=== PATIENT | female | born 1930 | race Caucasian/White ===

== ENCOUNTER 2016-12-12 12:51 | Emergency (ER) | payer MEDICARE, BC ==
[2016-03-07 10:07] VITALS: BMI 20.7
[~2016-12-12 12:51] MED LIST: DETROL1 MG PO; LIPITOR10 MG PO; LISINOPRIL10 MG PO; METOPROLOL TART50 MG PO; OXYBUTYNIN CHLOR5 MG PO
[2016-12-13] MEDS ORDERED: TYLENOL W/CODEI1 TAB PO (09:30)
[2016-12-13] MEDS ORDERED: DURICEF500 MG PO (14:50)
== END 2016-12-12 14:46 | disposition home or self-care (01) ==
LOC: D.ER 12:51
DX: S62.102A Fracture of unspecified carpal bone, left wrist, initial encounter for closed fracture (principal); W19.XXXA Unspecified fall, initial encounter; Y93.89 Activity, other specified; Y92.019 Unspecified place in single-family (private) house as the place of occurrence of the external cause

== ENCOUNTER 2016-12-13 08:55 | Day surgery (SDC) | payer MEDICARE, BC | END 2016-12-13 16:45 | disposition home or self-care (01) | LOC: D.OPS 08:55 | DX: S52.502A Unspecified fracture of the lower end of left radius, initial encounter for closed fracture (principal); I10 Essential (primary) hypertension; Z01.812 Encounter for preprocedural laboratory examination ==

== ENCOUNTER → 2017-12-15 08:26 | Outpatient (CLI) | payer MEDICARE, BC ==
[2016-12-13 09:44] VITALS: BMI 20.7
--- NOTE | ~2017-12-15 | EC ---
PATIENT:JUAN CARLOS LUGO DATE OF SERVICE: 12/15/17 SEX: F MEDICAL RECORD: [id number] DATE OF : 34 LOCATION:D[facility] AGE OF PATIENT: 87 ADMISSION DATE: 12/15/17 REFERRING PHYSICIAN: INTERPRETING PHYSICIAN: FLACO HUGHES MD ECHOCARDIOGRAM REPORT ECHO CHARGES 4 ECHO COMPLETE Date: 12/15/17 CLINICAL DIAGNOSIS: ECHOCARDIOGRAPHIC MEASUREMENTS (adult normal given) AC root (d.<3.7cm) 3.0 cm LV Septum d (<1.2 cm> 1.4 cm Valve Excursion 0.8 cm LV Septum (systole) 1.7 cm Left Atria (s.<4.0cm> 3.6 cm LVPW d(<1.2cm) 1.2 cm RV (d.<2.3cm) 2.1 cm LVPW (sytole) 1.9 cm LV diastole(<5.6CM) 4.2 cm MV E-F(>70mm/sec) cm LV systole 2.0 cm LVOT Diameter 1.8 cm MV exc.(>10mm) cm Est.ejection fraction (50-75%) % DOPPLER: LVIT cm/sec A 142 cm/sec E 173 cm/sec LA cm/sec RVSP 52.3 mmHg LVOT 94.0 cm/sec AOP1/2T m/s Asc. Ao 356 cm/sec RVOT 58.0 cm/sec RA cm/sec PA 98.0 cm/sec AV Gradient Peak 51.0 mmHg AV Mean 26.2 mmHg AV Area 0.5 cm MV Gradient Peak 12.0 mmHg MV Mean 4.9 mmHg MV Area cm COMMENTS: Agitator Operator: 1 CHRISTOPHER SANCHEZOE Biomedical Service Engineer: 2 Dr. Alex TAPE# PACS Pericardial Effusion N DATE OF SERVICE: 12/15/2017 FINDINGS: 1. Left ventricular chamber size is within normal limits. Left ventricular systolic function is normal. Overall ejection fraction estimated at 55%. 2. Left atrium, right atrium, and right ventricle chamber size is within normal limits. 3. 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 Valve area calculates to 0.5 cm-squared. There is a gradient of 51 mm across the valve. The remaining valvular structures have normal structure ECHOCARDIOGRAM REPORT [id number] JUAN CARLOS LUGO and motion. 4. Doppler interrogation elsewise reveals moderate mitral regurgitation and moderate tricuspid regurgitation. No other valvular insufficiency or stenosis. Pulmonary systolic pressure is normal, estimated at 52 mmHg. 5. No evidence of pericardial effusion or left ventricular thrombus. TRANSINT:[id number] Voice Confirmation ID: [id number] DOCUMENT ID: [id number] FLACO HUGHES MD at 1729 CC: MANDY JOHNSON [id number] DICTATION DATE: 12/15/17 1543 AREA CAPTAIN: 12/15/17 1629 DEP CLI 12/15/17 [facility] [address] [place] [address]
[~2017-12-15 08:26] MED LIST changes: +DURICEF500 MG PO; +TYLENOL W/CODEI1 TAB PO
== END | disposition home or self-care (01) ==
LOC: D.ECHO 12-11 13:30
DX: I35.0 Nonrheumatic aortic (valve) stenosis (principal)

== ENCOUNTER 2018-02-23 07:50 | Outpatient (CLI) | payer MEDICARE, BC ==
[~2018-02-23] VITALS: Ht 160 cm; Wt 54.1 kg
--- NOTE | ~2018-02-23 | HEMODYNAMI ---
PATIENT:JUAN CARLOS LUGO MEDICAL RECORD: [id number] : 34 LOCATION:[facility] D.2117 ADMISSION DATE: 02/23/18 Generatedon:02/24/201810:15 Patient name: JUAN CARLOS LUGO Patient #: [id number] SSN: : Date of study: 02/24/2018 Page: Of Hemodynamic Procedure Report Patient Data Patient Demographics Procedure consent was obtained First Name: JUAN CARLOS Gender: Female Last Name: BRITTNEY : 1930 [facility] Initial: DEB Age: 87 year(s) Patient #: [id number] Race: Additional ID: [id number] Contact details Address: [address] [place] [address] State: [place] City: [facility] Zip code: [address] Past Medical History Allergies Allergen Reaction Date Comments Reported Other allergy 02/23/2018 Aspirin, Sulfa Other allergy 02/24/2018 ASA, Sulfa, egg Admission Admission Data Admission Date: 02/23/2018 Admission Time: 7:50 Admit Source: Other Room #: D.2117 Lab Results Lab Result Date: 02/24/2018 Lab Result Time: 0:00 Biochemistry Name Units Result Min Max BUN mg/dl 17 --(---*)-- 7 18 Creatinine mg/dl 1.1 --(--*-)-- 0.6 1.3 CBC Name Units Result Min Max Hemoglobin g/dl 11.8 *-(----)-- 13.5 17.5 Procedure Procedure Types Cath Procedure PCI Procedure Coronary Stent Coronary Stent Initial Procedure Description Procedure Date Procedure Date: 02/24/2018 Procedure Start Time: 10:02 Procedure End Time: 10:09 Procedure Staff Name Function Christiano York MD Performing Physician Ally De Leon RT Monitor Aleta Martin RT Scrub Erlin Sanz RN Nurse Procedure Data Cath Procedure Fluoroscopy Diagnostic fluoroscopy Total fluoroscopy Time: 1.6 time: 1.6 min min Diagnostic fluoroscopy Total fluoroscopy dose: 115 dose: 115 mGy mGy Contrast Material Contrast Material Type Amount (ml) Isovue 300 27 Entry Location Entry Primary Successful Side Size Upsize Upsize Entry Closure Succes sful Closure Location (Fr) 1 (Fr) 2 (Fr) Remarks Device Remarks Femoral Right 6 Fr Exoseal artery Short Estimated blood loss: 10 ml Procedure Complications No complications Procedure Medications Medication Administration Route Dosage 0.9% NaCl I.V. 100 ml/hr Oxygen etCO2 Nasal cannula 2 l/min Heparin Flush Bag added to field 2 bags (1000units/500ml NS) Lidocaine 2% added to field 20 Versed I.V. 1 mg Fentanyl I.V. 50 mcg Heparin Bolus I.V. 4000 units Hemodynamics Rest HGB: 11.8 (g/dl) Heart Rate: 86 (bpm) Snapshots Pre Cath Intra NCS Post Cath Vital Signs Time Heart Resp SPO2 etCO2 NIBP (mmHg) Rhythm Pain Sedation Rate (ipm) (%) (mmHg) Status Level (bpm) 9:23:02 81 13 99 33.2 181/80(131) NSR 0 (11) 10(A) , No pain 9:27:28 84 13 96 0 169/77(128) NSR 0 (11) 10(A) , No pain 9:31:50 87 12 94 0 158/77(133) NSR 0 (11) 10(A) , No pain 9:36:10 82 11 96 0 149/70(117) NSR 0 (11) 10(A) , No pain 9:40:24 83 12 94 0 150/78(110) NSR 0 (11) 10(A) , No pain 9:44:41 83 11 92 0 147/76(120) NSR 0 (11) 10(A) , No pain 9:48:54 86 11 93 0 145/79(126) NSR 0 (11) 10(A) , No pain 9:53:06 81 11 94 0 156/74(126) NSR 0 (11) 10(A) , No pain 9:57:26 79 12 98 37.7 145/70(119) NSR 0 (11) 10(A) , No pain 10:01:40 78 12 97 42.2 135/78(111) NSR 0 (11) 9(A) , No pain 10:05:48 83 11 96 4.5 153/82(129) NSR 0 (11) 9(A) , No pain 10:10:06 80 12 97 32.4 147/74(109) NSR 0 (11) 10(A) , No pain Medications Time Medication Route Dose Verified Delivered Reason Notes Effectiveness by by 9:25:11 0.9% NaCl I.V. 100 Erlin Erlin Per physician ml/hr Umu Sanz RN RN 9:25:24 Oxygen etCO2 2 Erlin Erlin Per physician Nasal l/min Umu Sanz cannula RN RN 9:25:36 Heparin Flush added 2 Erlin Erlin used for Bag to bags Umu Sanz procedure (1000units/500ml field RN RN NS) 9:25:46 Lidocaine 2% added 20ml Erlin Erlin for local to vial Umu Sanz anesthetic RN RN 9:56:01 Versed I.V. 1 mg Erlin Erlin for sedation Umu Sanz RN RN 9:56:09 Fentanyl I.V. 50 Erlin Erlin for sedation mcg Umu Sanz RN RN 10:03:47 Heparin Bolus I.V. 4000 Erlin Erlin for units Umu Sanz anticoagulation RN utility worker film processing Log Time Note 9:06:10 Informed consent obtained and on chart 9:06:24 Diagnostic Cath Status : Elective 9:06:44 Erlin Sanz RN sent for patient. Start room use. 9:06:45 Time tracking: Regular hours (M-F 7:00 - 5:00) 9:06:49 Plan of Care:Hemodynamics will remain stable., Cardiac rhythm will remain stable., Comfort level will be maintained., Respiratory function will remain adequate., Patient/ family verbilizes understanding of procedure., Procedure tolerated without complication., Recovers from procedure without complications.. 9:09:10 Lab Result : Hemoglobin 11.8 g/dl 9:09:10 Lab Result : Creatinine 1.1 mg/dl 9:09:10 Lab Result : BUN 17 mg/dl 9:16:18 Patient received from PCU to CCL 2 Alert and oriented. Tansferred to table in Supine position. 9:16:19 Warm blankets applied, and leah hugger turned on for patient comfort. 9:16:20 Correct patient and procedure confirmed by team. 9:16:21 ECG and BP/O2 sat monitors applied to patient. 9:16:23 Full Disclosure recording started 9:19:19 H&P Date Dictated: 02/23/2018 Within 30 days and on chart., H&P Addendum completed by physician on day of procedure. (MUST COMPLETE FOR ALL OUTPATIENTS). 9:19:21 Pre-procedure instructions explained to patient. 9:19:29 Family in patients room. 9:19:30 Patient NPO since Midnight. 9:20:09 Patient allergic to Other allergyASA, Sulfa, egg 9:20:12 Is the patient allergic to Iodine/contrast media? No. 9:20:15 Was the patient premedicated? Yes 9:20:16 Is patient on blood thinner?Yes 9:20:20 ACC The patient was administered the following blood thiners within the last 24 hours: ACCPlavix 9:20:54 Patient diabetic? No. 9:21:00 Snore? No 9:21:02 Sleep apnea? No 9:21:04 Deviated septum? No 9:21:08 Opens mouth fully? Yes 9:21:10 Sticks out tongue? Yes 9:21:15 Dentures? Yes tight 9:21:21 Patient pain scale 0/10 ?. 9:21:50 Vital chart was started 9:21:52 Baseline sample Acquired. 9:21:59 Rhythm: sinus tachycardia 9:22:24 IV patent on arrival in left forearm with 0.9% NaCl at KVO. 9:22:28 Lab results completed and on chart. 9:22:33 Right groin area was prepped with chlora-prep and draped in sterile fashion 9:22:34 Alarms reviewed by R. N. 9:22:34 Sharps counted by scrub and verified by R.N. 9:22:36 Physician paged 9:24:34 Use device set Femoral Dx 9:24:36 ACIST Syringe (23716) opened to sterile field. 9:24:37 Bag Decanter (2002) opened to sterile field. 9:24:39 Medline Cath Pack ([id number]) opened to sterile field. 9:24:40 DIAGNOSTIC WIRE .035 260cm J wire (119784) opened to sterile field. 9:24:42 ACIST Hand Control (51564) opened to sterile field. 9:24:43 ACIST Manifold (89589) opened to sterile field. 9:25:11 0.9% NaCl 100 ml/hr I.V. was administered by Erlin Sanz RN; Per physician; 9:25:24 Oxygen 2 l/min etCO2 Nasal cannula was administered by Erlin Sanz RN; Per physician; 9:25:36 Heparin Flush Bag (1000units/500ml NS) 2 bags added to field was administered by Erlin Sanz RN; used for procedure; 9:25:38 Tegaderm 4 x 4 (1626W) opened to sterile field. 9:25:46 Lidocaine 2% 20ml vial added to field was administered by Erlin Sanz RN; for local anesthetic; 9:25:54 SHEATH 6FR [place] (ZNL670) opened to sterile field. 9:26:48 INFLATOR Merit BasixCompak (CD0142) opened to sterile field. 9:27:11 CHOICE PT Extra Support 182cm wire ([id number]) opened to sterile field. 9:48:21 Zero performed for pressure channel P1 9:55:37 Physician arrived 9:55:38 --------ALL STOP TIME OUT------ 9:55:39 Final Timeout: patient, procedure, and site verified with staff and physician. All members of the team are in agreement. 9:55:43 Right groin site verified by team. 9:55:46 Physical assessment completed. ASA score P 2 - A patient with mild systemic disease as per Christiano York MD. 9:55:50 Sedation plan: IV Moderate Sedation Medication:Versed, Fentanyl 9:56:01 Versed 1 mg I.V. was administered by Erlin Sanz RN; for sedation; 9:56:09 Fentanyl 50 mcg I.V. was administered by Erlin Sanz RN; for sedation; 10:02:47 PCI Cath status Elective 10:02:50 Procedure started. 10:02:55 Local anesthetic to right femoral artery with Lidocaine 2% by Christiano York MD.INITIAL ACCESS ONLY 10:03:03 A 6 Fr Short sheath was inserted into the Right Femoral artery 10:03:30 GUIDE 6FR XBLAD 3.5 catheter ([id number]) opened to sterile field. 10:03:43 6 Fr XBLAD3.5 guide catheter was inserted over the wire 10:03:47 Heparin Bolus 4000 units I.V. was administered by Erlin Sanz RN; for anticoagulation; 10:04:14 Choice pt ex wire advanced. 10::43 Wire advanced across lesion. 10:06:02 Place stent Inflation Number: 1 A INTEGRITY RX 3.5 x 12 stent ([id number]) was prepped and advanced across the Prox LAD. The stent was deployed at 13 SANDRA for 0:10 (min:sec). 10:06:43 Wire removed. 10:06:45 Guide catheter removed. 10:06:55 Sheath removed intact; hemostasis achieved with Exoseal to the Right Femoral artery. 10:06:58 Procedure ended.(Physican Out) 10:07:49 Fluoroscopy time 01.60 minutes. 10:07:53 Fluoroscopy dose: 115 mGy 10:07:53 Flurop Dose total: 115 10:08:12 EXOSEAL 6Fr (EX600) opened to sterile field. 10:08:19 Contrast amount:Isovue 300 27ml. 10:08:21 Sharps counted by scrub and verified by R.N. 10:08:23 Insertion/operative site no bleeding no hematoma. 10:08:25 Post Procedure Pulses reassessed and unchanged 10:08:31 Post-procedure physical assessment completed. ASA score P 2 - A patient with mild systemic disease as per Christiano York MD. 10:08:34 Post procedure rhythm: sinus rhythm 10:08:39 Estimated blood loss: 10 ml 10:08:43 Post procedure instruction explained to patient.Patient verbalizes understanding. 10:08:57 Procedure type changed to Cath procedure, PCI procedure, Coronary Stent, Coronary Stent Initial 10:08:59 Procedure and supply charges have been captured, reviewed, submitted and are correct. 10:09:24 Procedure Complication : No complications 10:09:26 Vital chart was stopped 10:09:27 See physician's report for complete and final results. 10:09:29 Report given to Pre/Post Procedure Room. 10:09:35 Patient transfered to Pre/Post Procedure Room with Bed. 10:09:37 Procedure ended. 10:09:37 Full Disclosure recording stopped 10:09:40 End room use (Document Last) Intervention Summary Intervention Notes Time ActionType Lesion and Equipment Action# Pressure Duration Attributes Used 10:06:[address] stent Prox LAD INTEGRITY RX 1 13 00:10 3.5 x 12 stent ([id number]) Device Usage Item Name Manufacture Quantity Catalog Number Hospital Part Current Mini mal Lot# / Charge Number Stock Stock Serial# Code ACIST Acist 1 21332 244694 221208 403173 20 Syringe Medical (76962) Systems Inc Bag Decanter Microtek 1 2001S 222849 49021 758815 5 (2001S) Medical Inc. Medline Cath Medline 1 [id number] 478508 94150 610433 5 Pack ([id number]) DIAGNOSTIC St [place] 1 350849 595120 690662 063054 30 WIRE .035 260cm J wire (213351) ACIST Hand Acist 1 65989 894708 771118 601236 5 Control Medical (59863) Systems Inc ACIST Acist 1 59753 421941 276070 794652 5 Manifold Medical (11490) Systems Inc Tegaderm 4 x 3M 1 1626W 970617 438254 375916 5 4 (1626W) SHEATH 6FR Terumo 1 YKI979 306765 391523 158861 40 [place] (LKQ606) INFLATOR Merit 1 FH2242 605184 742330 391832 15 Merit Medical BasixCompak (PR8454) CHOICE PT [place] 1 [id number] 289913 115615 255189 5 Extra Scientific Support 182cm wire ([id number]) GUIDE 6FR Cardinal 1 [id number] 144853 944365 232973 10 XBLAD 3.5 Health catheter (88610192) INTEGRITY RX Medtronic 1 [id number] 383378 251445 008957 5 [id number] 3.5 x 12 stent ([id number]) EXOSEAL 6Fr Cardinal 1 EX600 500939 508262 115859 10 (EX600) Health Signature Audit [place] Stage Time Signature Unsigned Intra-Procedure 02/24/2018 Ally De Leon 10:15:25 AM RT(R) Signatures Monitor : Ally De Leon Signature : RT Date : Time : [facility] [address] [facility] [place] [address]
--- NOTE | ~2018-02-23 | DS ---
PATIENT:JUAN CARLOS CARTER :34 MEDICAL RECORD: [id number] DISCHARGE SUMMARY ADMISSION DATE: 02/23/18 DISCHARGE DATE: 02/24/18 DATE OF SERVICE: 02/24/2018 DIAGNOSES: 1. Angina. 2. Coronary artery disease. 3. Percutaneous transluminal coronary angioplasty stent left anterior descending and right coronary artery this admission. HOSPITAL COURSE: Ms. Carter presents with anginal symptomatology, found to have 2-vessel disease of the LAD and RCA, underwent successful PTCA stent of both territories, was discharged home with the addition of Plavix to her medical regimen. Will follow up with [facility] in 1 month. TRANSINT:[id number] Voice Confirmation ID: [id number] DOCUMENT ID: [id number] FLACO HUGHES MD at 1718 CC: [id number] DICTATION DATE: 02/24/18 1012 AMBULATORY CARE NURSE: 02/25/18 0012 DEP CLI 02/24/[address] [address]
--- NOTE | ~2018-02-23 | OP ---
PATIENT NAME: JUAN CARLOS LUGO MEDICAL RECORD: [id number] :34 LOCATION:D.CAT ADMISSION DATE: SURGEON: FLACO HUGHES MD DATE OF OPERATION: 02/24/2018 PROCEDURES: 1. PTCA and stent, LAD. 2. Selective coronary angiography. INDICATION: Angina and coronary artery disease. PROCEDURE PERFORMED: After informed consent was obtained with detailed description of risks and benefits as well as alternative therapies, the patient elected to proceed with angiogram and angioplasty. The right femoral area was prepped and draped in normal sterile fashion. Right femoral artery was cannulated via modified Seldinger technique with placement of 6-Upper Sorbian sheath. All catheters were exchanged through this sheath. FINDINGS: The left anterior descending has 80% stenosis proximally. This was addressed with a 3.5 x 12-mm Integrity stent. Result was 0% residual stenosis. OVERALL IMPRESSION: Successful PTCA and stent of the LAD, going from 85% initial stenosis to 0% residual. TRANSINT:[id number] Voice Confirmation ID: [id number] DOCUMENT ID: [id number] FLACO HUGHES MD at 1704 CC: [id number] DICTATION DATE: 02/24/18 1011 SALES REPRESENTATIVE CONSULTANT: 02/24/18 1055 DEP CLI 02/24/18 [place] [address] [place] [address]
--- NOTE | ~2018-02-23 | OP ---
PATIENT NAME: JUAN CARLOS LUGO MEDICAL RECORD: [id number] :34 LOCATION:D.CAT ADMISSION DATE: SURGEON: FLACO HUGHES MD DATE OF OPERATION: 02/23/2018 PROCEDURES: 1. PTCA stent RCA. 2. Intravascular ultrasound. 3. Left heart catheterization. 4. Selective coronary angiography. 5. Left ventriculogram. INDICATION: Angina and coronary artery disease. PROCEDURE IN DETAIL: After informed consent was obtained and after a detailed description of risks, benefits as well as alternative therapies, the patient elected to proceed with angiogram and angioplasty. The right radial area was prepped and draped in normal sterile fashion. Right radial artery was cannulated via modified Seldinger technique with placement of 6-Taiwanese sheath. All catheters exchanged through this sheath. FINDINGS: Left ventriculogram was performed in standard 30-degree SHAW view, reveals good cardiac wall motion throughout all segments. Overall ejection fraction estimated 60%. SELECTIVE CORONARY ANGIOGRAPHY: 1. Left main is with no significant angiographic disease. 2. Left anterior descending has 80% stenosis proximally. 3. Left circumflex has moderate irregularities, but no flow-limiting stenosis. 4. Right coronary artery has 78% stenosis confirmed by intravascular ultrasound in the mid vessel. PTCA STENT OF THE RCA: The stent used was a 4.0 x 15 mm Integrity. Result was 0% residual stenosis. OVERALL IMPRESSION: Successful percutaneous transluminal coronary angioplasty stent of the right coronary artery going from approximately 80% initial stenosis to 0% residual. PLAN: PTCA stent of the LAD in the near future. TRANSINT:[id number] Voice Confirmation ID: [id number] DOCUMENT ID: [id number] FLACO HUGHES MD at 1704 CC: [id number] DICTATION DATE: 02/23/18 1006 WATER SERVICE DISPATCHER: 02/23/18 1040 DEP CLI 02/24/18 [place] [address]
--- NOTE | ~2018-02-23 | HEMODYNAMI ---
PATIENT:JUAN CARLOS LUGO MEDICAL RECORD: [id number] : 34 LOCATION:D.CAT ADMISSION DATE: 02/23/18 Generatedon:02/23/201810:08 Patient name: JUAN CARLOS LUGO Patient #: [id number] SSN: : Date of study: 02/23/2018 Page: Of Hemodynamic Procedure Report Patient Data Patient Demographics Procedure consent was obtained First Name: JUAN CARLOS Gender: Female Last Name: BRITTNEY : 1930 Middle Initial: DEB Age: 87 year(s) Patient #: [id number] Race: Unknown Additional ID: [id number] Contact details Address: [address] [place] [address] State: [place] City: [facility] Zip code: [address] Past Medical History Allergies Allergen Reaction Date Comments Reported Other allergy 02/23/2018 Aspirin, Sulfa Admission Admission Data Admission Date: 02/23/2018 Admission Time: 7:50 Admit Source: Other Procedure Procedure Types Cath Procedure Diagnostic Procedure LHC LHC w/Coronaries FFR/IVUS Intra-Coronary IVUS Initial Sedation Charges Moderate Sedation up to 15 minutes PCI Procedure Coronary Stent Coronary Stent Initial Procedure Description Procedure Date Procedure Date: 02/23/2018 Procedure Start Time: 9:46 Procedure End Time: 10:03 Procedure Staff Name Function Christiano York MD Performing Physician Aleta Martin RT Scrub Erlin Sanz RN Nurse Deandre Barrera RN Fashion Director Ally De Leon RT Fashion Director Procedure Data Cath Procedure Fluoroscopy Diagnostic fluoroscopy Total fluoroscopy Time: 3.1 time: 3.1 min min Diagnostic fluoroscopy Total fluoroscopy dose: 297 dose: 297 mGy mGy Contrast Material Contrast Material Type Amount (ml) Isovue 300 73 Entry Location Entry Primary Successful Side Size Upsize Upsize Entry Closure Rachel ccessful Closure Location (Fr) 1 (Fr) 2 (Fr) Remarks Device Remarks Radial Right 6 Fr Mechanical artery Short Compression Estimated blood loss: 10 ml Diagnostic catheters Device Type Used For End Catheter Placement DIAGNOSTIC [place] 110cm 5 Procedure Fr catheter ([id number]) Procedure Complications No complications Procedure Medications Medication Administration Route Dosage 0.9% NaCl I.V. bolus 100 ml/hr Oxygen etCO2 Nasal cannula 2 l/min Heparin Flush Bag added to field 2 bags (1000units/500ml NS) Lidocaine 2% added to field 20 Radial Cocktail added to field 1 syringe (Verapomil 2mg/Nitro 400mcg/Heparin 1500units) Versed I.V. 1 mg Fentanyl I.V. 50 mcg Radial Cocktail I.A. 1 syringe (Verapomil 2mg/Nitro 400mcg/Heparin 1500units) Heparin Bolus I.V. 4000 units Integrilin (Bolus I.V. 5 ml 2mg/ml) Integrilin (Bolus wasted 5 ml 2mg/ml) Plavix P.O. 600 mg Hemodynamics Rest Heart Rate: 68 (bpm) Snapshots Pre Cath Intra NCS Post Cath Vital Signs Time Heart Resp SPO2 etCO2 NIBP (mmHg) Rhythm Pain Sedation Rate (ipm) (%) (mmHg) Status Level (bpm) 9:21:44 75 16 99 0 182/85(133) NSR 0 (11) 10(A) , No pain 9:26:10 67 10 100 9.8 159/77(125) NSR 0 (11) 10(A) , No pain 9:30:28 74 15 100 15.1 156/75(133) NSR 0 (11) 10(A) , No pain 9:34:46 68 12 100 27.2 159/79(102) NSR 0 (11) 10(A) , No pain 9:39:06 70 12 100 25.6 165/75(107) NSR 0 (11) 10(A) , No pain 9:43:29 64 12 100 28.7 154/73(128) NSR 0 (11) 10(A) , No pain 9:47:43 75 16 100 31.7 174/83(132) NSR 0 (11) 9(A) , No pain 9:52:05 86 14 98 12 127/77(105) NSR 0 (11) 9(A) , No pain 9:56:15 83 15 99 37 129/70(98) NSR 0 (11) 10(A) , No pain 10:00:23 78 15 100 31.7 140/74(113) NSR 0 (11) 10(A) , No pain Medications Time Medication Route Dose Verified Delivered Reason Not es Effectiveness by by 9:23:14 0.9% NaCl I.V. 100 Erlin Erlin Per physician bolus ml/hr Umu Sanz RN RN 9:23:23 Oxygen etCO2 2 l/min Erlin Erlin Per physician Nasal Umu Sanz cannula RN RN 9:23:36 Heparin Flush added 2 bags Erlin Erlin used for Bag to Lornorma Sanz procedure (1000units/500ml field RN RN NS) 9:23:48 Lidocaine 2% added 20ml Erlin Erlin for local to vial Lorigan Umu anesthetic field RN RN 9:24:00 Radial Cocktail added 1 Erlin Erlin used for (Verapomil to syringe Lorigan Umu procedure 2mg/Nitro RN RN 400mcg/Heparin 1500units) 9:48:09 Versed I.V. 1 mg Erlin Erlin for sedation Umu aSnz RN RN 9:48:17 Fentanyl I.V. 50 mcg Erlin Erlin for sedation Umu Sanz RN RN 9:48:26 Radial Cocktail I.A. 1 Erlin Christiano for (Verapomil syringe Lornorma Tauth MD vasodilation 2mg/Nitro RN 400mcg/Heparin 1500units) 9:54:04 Heparin Bolus I.V. 4000 Erlin Erlin for units Umu Sanz anticoagulation RN RN 9:54:19 Integrilin I.V. 5 ml Erlin Erlin for (Bolus 2mg/ml) Umu Sanz antiplatelet RN RN therapy 9:54:38 Integrilin wasted 5 ml Erlin Erlin to sharp's (Bolus 2mg/ml) Umu Sanz RN RN 10:00:57 Plavix P.O. 600 mg Erlin Erlin for Umu Sanz antiplatelet RN RN therapy Procedure Log Time Note 9:00:37 Deandre Barrera RN sent for patient. Start room use. 9:14:54 Informed consent obtained and on chart 9:14:59 Admit Source: Other 9:16:58 Diagnostic Cath status Elective 9:17:43 Time tracking: Regular hours (M-F 7:00 - 5:00) 9:17:46 Plan of Care:Hemodynamics will remain stable., Cardiac rhythm will remain stable., Comfort level will be maintained., Respiratory function will remain adequate., Patient/ family verbilizes understanding of procedure., Procedure tolerated without complication., Recovers from procedure without complications.. 9:18:03 Patient received from Pre/Post Procedure Room to CCL 2 Alert and oriented. Tansferred to table in Supine position. 9:18:04 Warm blankets applied, and leah hugger turned on for patient comfort. 9:18:04 Correct patient and procedure confirmed by team. 9:18:05 ECG and BP/O2 sat monitors applied to patient. 9:18:07 Pre-procedure instructions explained to patient. 9:18:07 Pre-op teaching completed and patient verbalized understanding. 9:18:24 H&P Date Dictated: 02/12/2018 Within 30 days and on chart., H&P Addendum completed by physician on day of procedure. (MUST COMPLETE FOR ALL OUTPATIENTS). 9:18:26 Family in waiting room. 9:18:27 Patient NPO since Midnight. 9:18:41 Patient allergic to Other allergyAspirin, Sulfa 9:18:43 Is the patient allergic to Iodine/contrast media? No. 9:19:40 Is patient on blood thinner?No 9:19:40 Patient diabetic? No. 9:19:43 Previous problem with sedation/anesthesia? No ? 9:19:44 Snore? No 9:19:44 Sleep apnea? No 9:19:45 Deviated septum? No 9:19:46 Opens mouth fully? Yes 9:19:46 Sticks out tongue? Yes 9:19:48 Airway obstruction? No ? 9:19:51 Dentures? Yes OUT 9:20:11 Modified Kane's test Ulnar < 7 seconds 9:20:13 Patient pain scale 0/10 ?. 9:20:17 IV patent on arrival in left forearm with 0.9% NaCl at KVO. 9:20:19 Lab results completed and on chart. 9:20:21 Right Radial & Right Groin area was prepped with chlora-prep and draped in sterile fashion 9:20:23 Alarms reviewed by R. N. 9:20:23 Sharps counted by scrub and verified by R.N. 9:20:34 Vital chart was started 9:20:51 Rhythm: sinus rhythm 9:23:14 0.9% NaCl 100 ml/hr I.V. bolus was administered by Erlin Sanz RN; Per physician; 9:23:23 Oxygen 2 l/min etCO2 Nasal cannula was administered by Erlin Sanz RN; Per physician; 9:23:36 Heparin Flush Bag (1000units/500ml NS) 2 bags added to field was administered by Erlin Sanz RN; used for procedure; 9:23:48 Lidocaine 2% 20ml vial added to field was administered by Erlin Sanz RN; for local anesthetic; 9:24:00 Radial Cocktail (Verapomil 2mg/Nitro 400mcg/Heparin 1500units) 1 syringe added to field was administered by Erlin Sanz RN; used for procedure; 9:35:13 Baseline sample Acquired. 9:35:16 Full Disclosure recording started 9:43:03 Zero performed for pressure channel P1 9:44:28 Physician arrived 9:44:28 --------ALL STOP TIME OUT------ 9:44:29 Final Timeout: patient, procedure, and site verified with staff and physician. All members of the team are in agreement. 9:44:53 Right Radial & Right Groin site verified by team. 9:44:57 Physical assessment completed. ASA score P 2 - A patient with mild systemic disease as per Christiano York MD. 9:45:01 Sedation plan: IV Moderate Sedation Medication:Versed, Fentanyl 9:45:12 Use device set Radial Dx or PCI 9:45:13 ACIST Syringe (60308) opened to sterile field. 9:45:14 Medline Cath Pack ([id number]) opened to sterile field. 9:45:14 Bag Decanter () opened to sterile field. 9:45:15 DIAGNOSTIC WIRE .035 260cm J wire (073697) opened to sterile field. 9:45:16 ACIST Hand Control (86378) opened to sterile field. 9:45:17 ACIST Manifold (07118) opened to sterile field. 9:45:17 Tegaderm 4 x 4 (1626W) opened to sterile field. 9:45:18 MBrace Wrist Support ([id number]) opened to sterile field. 9:45:19 NEEDLE Cook 21G 4cm Radial (G15876) opened to sterile field. 9:45:22 TR BAND Standard ([id number]) opened to sterile field. 9:45:25 SHEATH 6FR Slender (80-2344) opened to sterile field. 9:46:39 Procedure started. 9:46:59 Local anesthetic to right radial artery with Lidocaine 2% by Christiano York MD.INITIAL ACCESS ONLY 9:47:15 A 6 Fr Short sheath was inserted into the Right Radial artery 9:47:29 A DIAGNOSTIC [place] 110cm 5 Fr catheter (423802) was advanced over the wire and used for Procedure. 9:48:09 Versed 1 mg I.V. was administered by Erlin Sanz RN; for sedation; 9:48:17 Fentanyl 50 mcg I.V. was administered by Erlin Sanz RN; for sedation; 9:48:26 Radial Cocktail (Verapomil 2mg/Nitro 400mcg/Heparin 1500units) 1 syringe I.A. was administered by Christiano York MD; for vasodilation; 9:48:35 LV angiography performed. 9:49:06 EF : 55 % 9:49:10 LCA angiography performed. 9:49:40 RCA angiography performed. 9:49:48 Catheter removed. 9:52:35 INFLATOR Merit BasixCompak (HR6944) opened to sterile field. 9:52:36 CHOICE PT Extra Support 182cm wire ([id number]) opened to sterile field. 9:52:36 GUIDE 6FR AR 2.0 SH catheter ([id number]) opened to sterile field. 9:52:37 Clarks Algaaciq [place] IVUS Catheter (15869S) opened to sterile field. 9:53:56 IVUS catheter advanced over wire. 9:54:04 Heparin Bolus 4000 units I.V. was administered by Erlin Sanz RN; for anticoagulation; 9:54:19 Integrilin (Bolus 2mg/ml) 5 ml I.V. was administered by Erlin Sanz RN; for antiplatelet therapy; 9:54:38 Integrilin (Bolus 2mg/ml) 5 ml wasted was administered by Erlin Sanz RN; to sharp's; 9:56:31 IVUS catheter removed over wire. 9:56:37 Proceeding to intervention. 9:56:52 6 Fr AR2 guide catheter was inserted over the wire 9:57:44 Place stent Inflation Number: 1 A INTEGRITY RX 4.0 x 15 stent ([id number]) was prepped and advanced across the Mid RCA. The stent was deployed at 17 SANDRA for 0:13 (min:sec). 10:00:35 Stent catheter was removed intact over wire. 10:00:36 Wire removed. 10:00:37 Guide catheter removed. 10:00:53 Sheath removed intact; hemostasis achieved with Mechanical Compression to the Right Radial artery. 10:00:56 Procedure ended.(Physican Out) 10:00:57 Plavix 600 mg P.O. was administered by Erlin Sanz RN; for antiplatelet therapy; 10:01:12 Fluoroscopy time 03.10 minutes. 10::17 Fluoroscopy dose: 297 mGy 10::17 Flurop Dose total: 297 10::21 Contrast amount:Isovue 300 73ml. 10:01:23 Sharps counted by scrub and verified by R.N. 10:01:25 TR band inflated with 13cc of air. 10:01:27 Insertion/operative site no bleeding no hematoma. 10:01:34 Post left radial artery:stable 10:01:39 Post-procedure physical assessment completed. ASA score P 2 - A patient with mild systemic disease as per Christiano York MD. 10:01:45 Post procedure rhythm: unchanged. 10:01:49 Estimated blood loss: 10 ml 10:01:52 Post procedure instruction explained to patient.Patient verbalizes understanding. 10:02:21 Procedure type changed to Cath procedure, Diagnostic procedure, LHC, LHC w/Coronaries, FFR/IVUS, Intra-Coronary IVUS Initial, Sedation Charges, Moderate Sedation up to 15 minutes, PCI procedure, Coronary Stent, Coronary Stent Initial 10:02:22 Procedure and supply charges have been captured, reviewed, submitted and are correct. 10:02:53 Procedure Complication : No complications 10:02:56 Vital chart was stopped 10:02:56 See physician's report for complete and final results. 10:02:58 Report given to Pre/Post Procedure Room. 10:03:02 Patient transfered to Pre/Post Procedure Room with Stretcher. 10:03:04 Procedure ended. 10:03:04 Full Disclosure recording stopped 10:03:08 End room use (Document Last) 10:07:55 ACC-PCI Only Patient was given prescriptions, or instructed by Christiano York MD to start/continue the following medications upon discharge: Plavix Intervention Summary Intervention Notes Time ActionType Lesion and Equipment Action# Pressure Duration Attributes Used 9:57:44 Place stent Mid RCA INTEGRITY RX 1 17 00:13 4.0 x 15 stent ([id number]) Device Usage Item Name Manufacture Quantity Catalog Number Hospital Part Current Mini mal Lot# / Charge Number Stock Stock Serial# Code ACIST Acist 1 05427 353788 130809 880946 20 Syringe Medical (31126) Systems Inc Medline Cath Medline 1 [id number] 416490 70418 406439 5 Pack ([id number]) Bag Decanter Microtek 1 2001S 535296 98598 044356 5 (2001S) Medical Inc. DIAGNOSTIC [place] 1 948216 993485 338084 577599 30 WIRE .035 260cm J wire (486238) ACIST Hand Acist 1 19122 840183 353673 640633 5 Control Medical (22885) Systems Inc ACIST Acist 1 63967 671113 410827 647510 5 Manifold Medical (45504) Systems Inc Tegaderm 4 x 3M 1 1626W 653533 066386 072495 5 4 (1626W) MBrace Wrist Advanced 1 140-0250-00 198897 16908 585286 5 Support Vascular ([id number]) Dynamics NEEDLE Cook Cook Medical 1 E55375 489245 794762 109572 5 21G 4cm Radial (R13334) TR BAND Terumo 1 HHT73-[id number] 873940 935564 633868 40 Standard ([id number]) SHEATH 6FR Terumo 1 [id number] 443286 373473 440223 40 Slender (80-1060) DIAGNOSTIC Terumo 1 40-5013 412994 748256 088865 5 [place] 110cm 5 Fr catheter (039359) INFLATOR Merit 1 BI6419 596752 021457 963527 15 Wilocity Medical BasixCompak (MT0540) CHOICE PT [place] 1 [id number] 413194 789074 702288 5 Extra Scientific Support 182cm wire (0363734W6) GUIDE 6FR AR Medtronic 1 [id number] 533319 20485 484130 1 2.0 SH catheter ([id number]) Clarks [place] 1 68384K 786802 478540 934948 8 Algaaciq [place] IVUS Catheter (53245D) INTEGRITY RX Medtronic 1 [id number] 712040 231860 839794 5 [id number] 4.0 x 15 stent ([id number]) Signature Audit Pender Stage Time Signature Unsigned Intra-Procedure 02/23/2018 Ally De Leon 10:08:11 AM RT(R) [facility] [address] [place] [id number]
[2018-02-23] MEDS ORDERED: NORVASC2.5 MG PO (08:03)
[2018-02-23 08:16] VITALS: BP 186/70; BMI 21.1
[2018-02-23 08:44] LABS: CALCIUM 9.1 mg/dL (8.5-10.1); CARBON DIOXIDE 29.1 mmol/L (21.0-32.0); CREATININE - SERUM 1.1 mg/dL (0.6-1.3); POTASSIUM - SERUM 4.1 mmol/L (3.5-5.1)
[2018-02-23 08:49] LABS: BASOPHILS 0.9 % (0-2); EOSINOPHILS 3.9 % (0-7); HEMOGLOBIN 11.8 g/dL (12-16); IMMATURE GRANULOCYTES 0.3 % (0-5); LYMPHOCYTES 33.3 % (15-50); MCH 31.9 pg (26.0-34.0); MCHC 32.8 g/dL (31.0-37.0); MCV 97.3 fL (80.0-100.0); MEAN PLATELET VOLUME 9.8 fL (7.4-10.4); MONOCYTES 14.8 % (2-11); NEUTROPHILS 46.8 % (40-80); PLATELET COUNT 161 10x3/uL (130-400); RDW 13.3 % (11.5-14.5); WBC 3.3 10x3/uL (4.8-10.8)
[2018-02-23 11:07] VITALS: Ht 160 cm; Wt 54.1 kg
[2018-02-23 15:00] VITALS: BP 159/81
[2018-02-23 19:00] VITALS: BP 151/68
[2018-02-24 01:37] VITALS: BP 104/60
[2018-02-24 06:11] VITALS: BP 120/75
[2018-02-24 08:11] VITALS: BP 158/63
[2018-02-24] MEDS ORDERED: PLAVIX75 MG PO (10:35)
[2018-02-24] MEDS ORDERED: BAYER CHEWABLE81 MG PO (10:35)
== END 2018-02-24 14:35 | disposition home or self-care (01) ==
LOC: D.M2 07:50 → D.CATH 07:50 → D.M2 10:03 → D.CLR 02-24 12:05 → D.CATH 02-24 14:35
PROVIDERS: Internal Medicine Interventional Cardiology
DX: I25.119 Atherosclerotic heart disease of native coronary artery with unspecified angina pectoris (principal); Z01.812 Encounter for preprocedural laboratory examination

== ENCOUNTER 2018-04-10 19:30 | Inpatient (IN) | payer MEDICARE, BC ==
[~2018-04-10] VITALS: Ht 160 cm; Wt 52.6 kg
--- NOTE | 2018-04-10 19:15 | NUR ---
PT ARRIVED VIA, WC WITH GAME MANAGER, PT DURGA BARILLAS, ORIENTED TO FACILITY, ROOM, BATHROOM, EXPLAINED THE TV REMOTE/CALL LIGHT SYSTEM,FLUIDS AND CALL LIGHT WITHIN REACH,
[~2018-04-10 19:30] MED LIST changes: +BAYER CHEWABLE81 MG PO; +NORVASC2.5 MG PO; +PLAVIX75 MG PO
[2018-04-10 23:44] VITALS: BP 150/61; BMI 20.5
--- NOTE | 2018-04-11 03:23 | NUR ---
PT ASLEEP NO NEEDS NOTED, FLUIDS AND CALL LIGHT WITHIN REACH
[2018-04-11 06:47] LABS: BASOPHILS 0.3 % (0-2); EOSINOPHILS 1.9 % (0-7); HEMATOCRIT 30.1 % (36.0-48.0); HEMOGLOBIN 10.1 g/dL (12-16); IMMATURE GRANULOCYTES 0.3 % (0-5); MCH 32.1 pg (26.0-34.0); MCHC 33.6 g/dL (31.0-37.0); MCV 95.6 fL (80.0-100.0); MEAN PLATELET VOLUME 10.3 fL (7.4-10.4); NEUTROPHILS 62.5 % (40-80); PLATELET COUNT 132 10x3/uL (130-400); RBC 3.15 10x6/uL (4.00-5.40); RDW 13.1 % (11.5-14.5); WBC 7.5 10x3/uL (4.8-10.8)
[2018-04-11 07:42] LABS: ANION GAP 14.7 mmol/L (8-16); CALCIUM 8.8 mg/dL (8.5-10.1); CARBON DIOXIDE 22.4 mmol/L (21.0-32.0); POTASSIUM - SERUM 4.1 mmol/L (3.5-5.1)
[2018-04-11 08:00] VITALS: BP 120/62
--- NOTE | 2018-04-11 08:00 | NUR ---
SHIFT ASSMT COMPLETED.BREAKFAST GIVEN.CL IN REACH.
[2018-04-11 10:11] VITALS: Ht 160 cm; Wt 52.6 kg
--- NOTE | 2018-04-11 12:00 | NUR ---
SITTING UP EATING LUNCH.DELORIS THERAPY.
--- NOTE | 2018-04-11 16:00 | NUR ---
RESTING ON SIDE.DENIES NEEDS.
[2018-04-11 19:00] VITALS: BP 162/67
--- NOTE | 2018-04-11 19:26 | NUR ---
PATIENT IS RESTING IN HER BED. SHE DENIES ANY NEEDS. BED IS DOWN LOW WITH SIDE RAILS UP X2. CALL LIGHT IS IN REACH.
--- NOTE | 2018-04-11 20:30 | NUR ---
PATIENT IS RESTING IN HER BED. VITAL SIGNS ARE STABLE. BED IS DOWN LOW WITH SIDE RAILS UP X2. CALL LIGHT IN REACH.
--- NOTE | 2018-04-12 00:16 | NUR ---
PATIENT IS SLEEPING. BED IS DOWN LOW WITH SIDE RAILS UP X2. BED ALARM ACTIVATED AND CALL LIGHT IN REACH.
--- NOTE | 2018-04-12 04:07 | NUR ---
PATIENT IS SLEEPING. BED IS DOWN LOW WITH SIDE RAILS UP X2. BED ALARM IS ACTIVATED AND CALL LIGHT IS IN REACH.
[2018-04-12 08:00] VITALS: BP 104/56
--- NOTE | 2018-04-12 08:00 | NUR ---
SHIFT ASSMT COMPLETED.DENIES NEEDS.BREAKFAST GIVEN.CL IN REACH.
--- NOTE | 2018-04-12 12:00 | NUR ---
DOWN TO LUNCHROOM WITH SON.
--- NOTE | 2018-04-12 12:40 | NUR ---
DELORIS LUNCH WELL.WENT BY WC AND CAME BACK BY WC.
--- NOTE | 2018-04-12 16:00 | NUR ---
RESTING QUIETLY.FAMILY AND FRIENDS VISITING.
[2018-04-12 19:22] VITALS: BP 110/53
--- NOTE | 2018-04-12 19:41 | NUR ---
PATIENT IS RESTING IN HER BED. VITAL SIGNS ARE STABLE. SHE DENIES ANY NEEDS. BED IS DOWN LOW WITH SIDE RAILS UP X2. BED ALARM ACTIVATED AND CALL LIGHT IN REACH.
--- NOTE | 2018-04-12 20:15 | NUR ---
PATIENT IS RESTING IN HER BED. BED IS DOWN LOW WITH SIDE RAILS UP X2. CALL LIGHT IN REACH. BED ALARM ACTIVATED.
--- NOTE | 2018-04-13 00:01 | NUR ---
PATIENT IS SLEEPING. BED IS DOWN LOW WITH SIDE RAILS UP X2. BED ALARM ACTIVATED AND CALL LIGHT IN REACH.
--- NOTE | 2018-04-13 04:01 | NUR ---
PATIENT IS SLEEPING. BED IS DOWN LOW WITH SIDE RAILS UP X2. BED ALARM ACTIVATED AND CALL LIGHT IN REACH.
[2018-04-13 07:30] LABS: BASOPHILS 0.5 % (0-2); EOSINOPHILS 3.4 % (0-7); HEMATOCRIT 31.7 % (36.0-48.0); HEMOGLOBIN 10.5 g/dL (12-16); IMMATURE GRANULOCYTES 0.2 % (0-5); LYMPHOCYTES 13.4 % (15-50); MCH 31.7 pg (26.0-34.0); MCHC 33.1 g/dL (31.0-37.0); MCV 95.8 fL (80.0-100.0); NEUTROPHILS 63.5 % (40-80); RBC 3.31 10x6/uL (4.00-5.40); RDW 12.7 % (11.5-14.5); WBC 6.5 10x3/uL (4.8-10.8)
[2018-04-13 07:51] LABS: ANION GAP 11.7 mmol/L (8-16); CALCIUM 8.9 mg/dL (8.5-10.1); CARBON DIOXIDE 25.6 mmol/L (21.0-32.0); CREATININE - SERUM 1.1 mg/dL (0.6-1.3); POTASSIUM - SERUM 4.3 mmol/L (3.5-5.1)
[2018-04-13 07:54] LABS: PLATELET COUNT 182 10x3/uL (130-400)
--- NOTE | 2018-04-13 09:56 | NUR ---
PATIENT AWAKE AND ORIENTED THIS MORNING. ASSISTED TO BATHROOM AND NOTICED A RE BUMPY RASH ON RIGHT BUTTUCK. PATIENT STATED THAT IT ITCHED AND THAT SHE GET'S THIS RASH A COUPLE OF TIMES A YEAR AND HAS CREAM THAT SHE PUTS ON IT. QUESTIONED PATIENT AND SHE CAN'T REMEMBER THE NAME OF OF THE MEDICATION. ASKED HER IF SHE HAD ANY AT HOME THAT A FAMILY MEMBER COULD BRING AND SHE SAID SHE DIDN'T THINK THAT SHE HAD ANY. ABOUT THIS TIME DR. SCOTT CAME IN TO SEE PATIENT AND HE LOOKED AT THE RASH AND SAID IT WAS SHINGLES. DR. SCOTT PUT IN ORDER FOR MEDICATION FOR SHINGLES AND PATIENT WAS PLACED ON CONTACT ISOLATION.
[2018-04-13 10:47] VITALS: BP 138/48
[2018-04-13 19:00] VITALS: BP 144/52
--- NOTE | 2018-04-13 19:01 | NUR ---
PATIENT IS RESTING IN HER BED. DENIES ANY NEEDS. BED IS DOWN LOW WITH SIDE RAILS UP X2. BED ALARM ACTIVATED AND CALL LIGHT IN REACH.
--- NOTE | 2018-04-13 20:31 | NUR ---
PATIENT IS RESTING IN BED. VITAL SIGNS ARE STABLE. BED IS DOWN LOW WITH SIDE RAILS UP X2. CALL LIGHT IS IN REACH.
--- NOTE | 2018-04-14 00:05 | NUR ---
PATIENT IS SLEEPING. BED ALARM ACTIVATED. CALL LIGHT IN REACH.
--- NOTE | 2018-04-14 04:02 | NUR ---
PATIENT IS SLEEPING. BED IS DOWN LOW WITH SIDE RAILS UP X2. CALL LIGHT IS IN REACH. BED ALARM ACTIVATED AND CALL LIGHT IN REACH.
[2018-04-14 07:33] VITALS: BP 149/60
--- NOTE | 2018-04-14 08:00 | NUR ---
SITTING ON SIDE OF BED EATING BREAKFAST. SO FAR HAS COMPLAINED ABOUT THE ENTIRE BREAKFAST TRAY STATING SHE WANTED SWEDISH TOAST (SHE IS ALLERGIC TO EGGS). SHE STATED "I CAN EAT EGGS SOMETIMES".....THEN DEMANDED MORE SUGAR AND CHOCOLATE MILK. SHE REFUSED TO WAIT ON STAFF TO COME TO HER ROOM TO WALK WITH HER TO RESTROOM.
--- NOTE | 2018-04-14 12:12 | NUR ---
PHARMACY JUST DELIVERED VALTREX TO FLOOR. IT WAS DUE AT 0900. I CALLED AND SENT FAX FOR MEDS EARLY.
--- NOTE | 2018-04-14 14:04 | NUR ---
Nutrition Follow Up: Pt stated that her appetite is improving. She said that she does not like Ensure/Boost. Food preferences noted. RD encouraged pt to increase po intake as able. Diet: Regular AHA PO Intake: 51% meal avg BM: 04/12/18 Meds and labs noted Will change diet to regular to encourage po intake. Will honor food preferences. RD following.
[2018-04-14 19:35] VITALS: BP 142/54
--- NOTE | 2018-04-14 19:35 | NUR ---
GREETED PATIENT AND INTRODUCED MYSELF. VITAL SIGNS WERE TAKEN AT THIS TIME. HELPED PATIENT TO BATHROOM USING WALKER. PATIENT BACK TO BED AND REPOSITIONED FOR COMFORT. CALL LIGHT IN REACH. PATIENT DENIES ANY FURTHER NEEDS AT THIS TIME.
--- NOTE | 2018-04-14 23:59 | NUR ---
PT REMAINS ON CONTACT ISOLATION FOR SHINGLES, NO NEEDS NOTED, FLUIDS AND CALL LIGHT WITHIN REACH
--- NOTE | 2018-04-15 00:05 | NUR ---
PATIENT ASLEEP WITH EYES CLOSED LAYING ON LEFT SIDE. RESPIRATIONS EVEN. NO SIGNS OF DISTRESS. CALL LIGHT IN REACH. BED IN LOWEST POSITION.
--- NOTE | 2018-04-15 01:54 | NUR ---
ASSISTED PATIENT TO BATHROOM USING WALKER. PATIENT IS REQUESTING PRN PAIN MEDICATION.
--- NOTE | 2018-04-15 01:57 | NUR ---
ADMINISTERED TYLENOL FOR HIP PAIN 08/07. WCTM.
--- NOTE | 2018-04-15 04:10 | NUR ---
PATIENT ASLEEP WITH EYES CLOSED LAYING ON LEFT SIDE. HOB AT 15 DEGREES. RESPIRATIONS EVEN. NO SIGNS OF DISTRESS. CALL LIGHT IN REACH. BED IN LOWEST POSITION.
--- NOTE | 2018-04-15 06:24 | NUR ---
ASSISTED PATIENT TO BATHROOM USING WALKER. PATIENT BACK TO BED AND REPOSITIONED FOR COMFORT. CALL LIGHT IN REACH. BED IN LOWEST POSITION.
[2018-04-15 06:56] LABS: ANION GAP 10.4 mmol/L (8-16); CALCIUM 8.9 mg/dL (8.5-10.1); CARBON DIOXIDE 26.6 mmol/L (21.0-32.0); CREATININE - SERUM 1.1 mg/dL (0.6-1.3)
[2018-04-15 07:00] LABS: HEMATOCRIT 31.2 % (36.0-48.0); HEMOGLOBIN 10.3 g/dL (12-16); MCH 31.5 pg (26.0-34.0); MCV 95.4 fL (80.0-100.0); MEAN PLATELET VOLUME 9.8 fL (7.4-10.4); RBC 3.27 10x6/uL (4.00-5.40); RDW 13.1 % (11.5-14.5)
[2018-04-15 07:09] LABS: PLATELET COUNT 256 10x3/uL (130-400); WBC 4.4 10x3/uL (4.8-10.8)
[2018-04-15 08:20] LABS: ANISOCYTOSIS OCC; BASOPHILS 1 % (0-2); EOSINOPHILS 8 % (0-7); LYMPHOCYTES 24 % (15-50); MONOCYTES 21 % (2-11); NEUTROPHILS 45 % (40-80); PLATELET ESTIMATE NORMAL; ROULEAUX OCC
--- NOTE | 2018-04-15 15:00 | NUR ---
IN ROOM SON VISITING.CL IN REACH.
--- NOTE | 2018-04-15 16:05 | NUR ---
PATIENT ADMITTED TO REHAB. SHE IS PROGRESSING WELL. MOHAN DISCHARGE DATE IS 04/17/18 BACK HOME WITH HER SON. WILL CONTINUE TO FOLLOW WITH PATIENT.
--- NOTE | 2018-04-15 16:40 | RHP ---
PATIENT: JUAN CARLOS LUGO MEDICAL RECORD: [id number] ACCOUNT: [id number] LOCATION:[facility]1114 : 34 ADMISSION DATE: 04/10/18 REHABILITATION HISTORY AND PHYSICAL EXAMINATION POST ADMISSION PHYSICIAN EXAMINATION DATE OF ADMISSION: 04/10/2018 ADMITTING DIAGNOSIS: Severe aortic valve stenosis. HISTORY OF PRESENT ILLNESS: The patient is an 87-year-old patient who was referred by Dr. Prather from Cardiology and Dr. Torrez on 04/06/2018 for further evaluation of severe aortic stenosis. The patient is followed by Dr. York in [place], was referred to Dr. Warner. The patient complained of worsening fatigue and shortness of breath over the last couple of months. 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 She has been complaining of dizziness intermittently. She recently had an echo on 02/02/2018, which showed a peak gradient of 75 with an EF of 55%. EKG showed normal sinus rhythm without any other complaints. The patient was classified as a [place] Heart classification class 3 and was recommended for total aortic valve replacement procedure. On 04/07/2018, she underwent aortic graft via the aortic root, as well as the ascending aorta via the radial artery, placement of a temporary pacemaker was done. She had transcatheter right femoral aortic valve replacement with a #29 Medtronic Evolut Pro stent bioprosthesis under the care of Dr. Torrez and Dr. Prather. Postop, she has some difficulty coming out of anesthesia. On 04/09/2018, she developed stroke-like symptoms with acute mental status change and left-sided weakness. Neurology was consulted. CT of her head showed no acute events at that time. She has been participating in PT and OT and is going to require significant assistance prior to returning home. On 04/09/2018, she ambulated 22 feet with min assist. At this time, she has been having some dizziness. On 04/10/2018, she has progressed well and is supervision for bed mobility, min assist for transfers, min assist for ambulation. She did go almost 120 feet, MD has requested acute inpatient rehabilitation consultation prior to discharge. Barrier to discharging home at this time include possible cardiac complications and risk for falls, a decrease in nutritional status, increased need for care at this time and need for increased independence with ADLs and mobility and safety prior to going home. COMORBIDITIES: In this patient include acute encephalopathy, coronary artery disease, hypertension, and hyperlipidemia. PAST MEDICAL HISTORY: Significant for hypertension, hyperlipidemia, aortic stenosis, moderate mitral regurgitation and moderate tricuspid regurgitation. PAST SURGICAL HISTORY: Includes appendectomy, hysterectomy. She has had a hip replacement and an ORIF of her distal radius. ALLERGIES: SULFA DRUGS, ASPIRIN, and KEFLEX. HISTORY AND PHYSICAL [id number] JUAN CARLOS LUGO CURRENT MEDICATIONS: Include Plavix 75 mg daily, multivitamin daily, Toprol 25 mg daily, Mag-Ox 400 mg daily, polyethylene glycol 17 grams in 8 ounces of water daily, Tylenol 650 mg q. 6 hours p.r.n., melatonin 9 mg at bedtime, amlodipine 2.5 mg at bedtime, and Eliquis 2.5 mg b.i.d. HABITS: No current alcohol or tobacco use. FAMILY HISTORY: Noncontributory. SOCIAL HISTORY: The patient wishes to return back home and get back to her prior level of functioning. REVIEW OF SYSTEMS: GENERAL: Does complain of some weakness and fatigue. HEENT: Denies cold, cough, or congestion. CARDIOVASCULAR: Denies chest pain. PHYSICAL EXAMINATION: VITAL SIGNS: Stable, afebrile. GENERAL: Elderly female, in no acute distress upon exam. HEENT: Normocephalic and atraumatic. Mucosa moist. NECK: Supple. No lymphadenopathy. LUNGS: Clear at this time. HEART: Regular rate and rhythm. ABDOMEN: Benign. EXTREMITIES: No clubbing, cyanosis or edema. NEUROLOGIC: She does have noted proximal muscle weakness but is within normal limits. LABORATORY DATA: Admit lab work showed a white count was 7.5, H&H of 10 and 31, and platelet count is noted to be 132. Her sodium is 133, potassium 4.1, BUN and creatinine of 19 and 1.0, and blood sugar was noted to be 125. ASSESSMENT: This is an 87-year-old female patient admitted to rehab with a working diagnosis of status post aortic valve replacement. The patient has potential to make improvement. We instituted the following multidisciplinary therapies including, but not limited to physical, occupational, respiratory, speech, nutritional services, prosthetics, and orthotics. Given her complex medical conditions and risks for more complications, rehabilitation services cannot be provided at a low level of care such as skilled nurse facility. PLAN: 1. Admit to [facility] for intensive inpatient therapy to include the following disciplines: A. Physical therapy to improve gait, all transfer skills, and bed mobility to a modified independent level. B. Occupational therapy to improve activities of daily living to a modified independent level. C. Case management to assist with discharge planning and placement options. D. Nutrition to assist with nutritional needs. E. Rehabilitation nursing to assist in monitoring the patient's underlying medical conditions and to assist with any type of bowel or bladder management. HISTORY AND PHYSICAL [id number] JUAN CARLOS LUGO 2. The patient's current medication and medical care will be continued. 3. The patient will be placed on standard fall precautions. 4. The length of stay is approximately 7-10 days. 5. We will discuss the patient during care team staff meeting this week. I will try to follow up in the a.m. TRANSINT:[id number] Voice Confirmation ID: [id number] DOCUMENT ID: [id number] TAMMY notes whether there has been none or any medical/functional change since admission: - No change since preadmission screen. TAMMY attests patient continues to be appropriate for IRF: - Continues to be appropriate. DUSTIN SCOTT MD at 1640 CC: [id number] DICTATION DATE: 04/11/181850 SHANK INSPECTOR: 04/11/182056 ADM IN [facility] [address] [place] [address]
--- NOTE | 2018-04-15 18:38 | NUR ---
PT RESTING IN BED WITH EYES OPEN CALL LIGHT IN REACH WILL MONITER
--- NOTE | 2018-04-15 18:59 | NUR ---
PATIENT IS RESTING IN HER BED. DENIES ANY NEEDS. BED IS DOWN LOW WITH SIDE RAILS UP X2. CALL LIGHT IN REACH.
--- NOTE | 2018-04-15 21:14 | NUR ---
PATIENT IS RESTING IN HER BED. VITAL SIGNS ARE STABLE. SHE DENIES ANY NEEDS. BED IS DOWN LOW WITH SIDE RAILS UP X2. CALL LIGHT IS IN REACH.
--- NOTE | 2018-04-16 00:14 | NUR ---
PATIENT IS SLEEPING. BED IS DOWN LOW WITH SIDE RAILS UP X2. CALL LIGHT IS IN REACH.
[2018-04-16 01:19] VITALS: BP 133/74
--- NOTE | 2018-04-16 04:06 | NUR ---
PATIENT IS SLEEPING. BED IS DOWN LOW WITH SIDE RAILS UP X2. CALL LIGHT IS IN REACH.
[2018-04-16 08:00] VITALS: BP 146/66
--- NOTE | 2018-04-16 08:15 | NUR ---
PT RESTING IN BED WITH EYES OPEN CALL LIGHT IN REACH NO PROBLEMS WILL MONITER
--- NOTE | 2018-04-16 12:00 | NUR ---
CL IN REACH
--- NOTE | 2018-04-16 18:46 | NUR ---
PT RESTING IN BED WITH EYES OPEN CALL LIGHT IN REACH WILL MONITER
[2018-04-16 19:00] VITALS: BP 104/63
--- NOTE | 2018-04-16 19:20 | NUR ---
GREETED PATIENT AND INTRODUCED MYSELF HER NURSE FOR THE EVENING. ASKED PATIENT ABOUT HER SYNCOPE EPISODE TODAY. PATIENT STATED THAT SHE THINKS SHE OVERDID IT TODAY IN THERAPY. PATIENT SAYS THAT SHE DOESNT HAVE A HEADACHE AT THIS TIME OR NO EVIDENCE OF PAIN. CALL LIGHT IN REACH.
--- NOTE | 2018-04-17 02:05 | NUR ---
PATIENT ASLEEP LAYING ON RIGHT SIDE. HOB AT 20 DEGREES. RESPIRATIONS EVEN. NO SIGNS OF DISTRESS. CALL LIGHT IN REACH.
--- NOTE | 2018-04-17 04:05 | NUR ---
PATIENT ASLEEP WITH EYES CLOSED LAYING ON RIGHT SIDE. RESPIRATIONS EVEN. NO SIGNS OF DISTRESS. CALL LIGHT IN REACH.
[2018-04-17 07:22] LABS: BASOPHILS 2.2 % (0-2); EOSINOPHILS 6.3 % (0-7); HEMATOCRIT 30.6 % (36.0-48.0); IMMATURE GRANULOCYTES 1.1 % (0-5); LYMPHOCYTES 29.2 % (15-50); MCH 31.3 pg (26.0-34.0); MCHC 32.7 g/dL (31.0-37.0); MCV 95.9 fL (80.0-100.0); MEAN PLATELET VOLUME 9.2 fL (7.4-10.4); MONOCYTES 14.9 % (2-11); NEUTROPHILS 46.3 % (40-80); PLATELET COUNT 297 10x3/uL (130-400); RBC 3.19 10x6/uL (4.00-5.40); RDW 13.3 % (11.5-14.5); WBC 3.6 10x3/uL (4.8-10.8)
[2018-04-17 07:35] LABS: ANION GAP 11.3 mmol/L (8-16); CALCIUM 8.7 mg/dL (8.5-10.1); CARBON DIOXIDE 25.2 mmol/L (21.0-32.0); CREATININE - SERUM 1.3 mg/dL (0.6-1.3); POTASSIUM - SERUM 4.5 mmol/L (3.5-5.1)
[2018-04-17] MEDS ORDERED: ELIQUIS2.5 MG PO (08:38)
[2018-04-17] MEDS ORDERED: TOPROL XL25 MG PO (08:38)
[2018-04-17] MEDS ORDERED: THERAGRAN M [BK1 TAB PO (08:39)
[2018-04-17] MEDS ORDERED: MELATONIN 3 MG1 TAB PO (08:39)
[2018-04-17] MEDS ORDERED: MIRALAX17 GM PO (08:39)
--- NOTE | 2018-04-17 09:38 | NUR ---
PATIENT DISCHARGING HOME TODAY WITH FAMILY. SHE DECLINES HOME HEALTH AT THIS TIME. NO NEW DME NEEDED AT THIS TIME. DR. JOHNSON 04/24/18 @ 9:45, DR. HUGHES 04/22/18 @ 2:00. [facility] FORMS SIGNED AND FILED IN CHART. DISCHARGE INSTRUCTIONS WITH [facility] FAXED TO PCP.
--- NOTE | 2018-04-17 10:04 | NUR ---
DC HOME WITH ALL PERSONAL BELONGINGS. MEDS CALLED INTO PHARMACY. REVIEWED MEDS, DC PLAN AND FOLLOW UP APPT WITH ISSA DENIES QUESTIONS. SON CAME AND GOT HER.
== END 2018-04-17 10:10 | disposition home or self-care (01) | DRG 949 ==
LOC: D.REHAB 19:30
PROVIDERS: ADMIT Emergency Medicine
DX: Z48.812 Encounter for surgical aftercare following surgery on the circulatory system (principal); G93.40 Encephalopathy, unspecified; Z95.2 Presence of prosthetic heart valve; E78.5 Hyperlipidemia, unspecified; I25.10 Atherosclerotic heart disease of native coronary artery without angina pectoris; I10 Essential (primary) hypertension